=== PATIENT | male | born 1995 | race Two or more races ===

== ENCOUNTER 2018-10-04 01:42 | Inpatient (IN) | payer OTHER ==
[2018-10-04 02:12] LABS: PLATELET COUNT 192 10^3/uL (150-400)
[2018-10-04] MEDS ORDERED: OLANZapine DISINTEGR 10 MG TAB PO ONE (02:39)
--- NOTE | 2018-10-04 02:44 | EDPHY ---
H & P Stated Complaint: M1 Source: Patient - Personal History Current Tetanus Diphtheria and Acellular Pertussis (TDAP): Yes - Medical/Surgical History Hx Asthma: Yes Hx Chronic Respiratory Disease: No Hx Diabetes: No Hx Cardiac Disease: No Hx Renal Disease: No Hx Cirrhosis: No Hx Alcoholism: No Hx HIV/AIDS: No Hx Splenectomy or Spleen Trauma: No Other PMH: asthma - Social History Smoking Status: Never smoked Time Seen by Provider: 10/04/18 01:54 HPI/ROS: HPI The patient presents brought in by police on an M1 hold for suicidal ideation. Patient was making suicidal statements while at a constitution party with friends fawn. He does admit to having for glasses of wide at using marijuana. He supposedly wrote a suicide note about 1 week ago and has recently broken up with his girlfriend. He currently says he is not feeling suicidal, wants to leave the emergency department, thinks that his friends were projecting there a motions onto him. He denies any prior history of mental health problems. REVIEW OF SYSTEMS 10 systems were reviewed and negative with the exception of the elements mentioned in the history of present illness. PMHx: Asthma Soc Hx: College student, originally from [facility], alcohol and marijuana use FHx: Denies family history of depression PHYSICAL General Appearance: Alert, intoxicated Eyes: Pupils equal and round no pallor or injection ENT, Mouth: Mucous membranes moist Respiratory: There are no retractions, lungs are clear to auscultation Cardiovascular: Regular rate and rhythm Gastrointestinal: Abdomen is soft and non-tender, no masses, bowel sounds normal Neurological: A&O, moves all extremities Skin: Warm and dry, no rashes Musculoskeletal: Neck is supple non tender Extremities: symmetrical, full range of motion Psychiatric: Patient is oriented X 3, pressured speech, somewhat tangential (Riguzzi,Alexandria) Constitutional: Initial Vital Signs Temperature (C) 36.7 C 10/04/18 01:49 Heart Rate 91 10/04/18 01:49 Respiratory Rate 16 10/04/18 01:49 Blood Pressure 144/104 H 10/04/18 01:49 O2 Sat (%) 96 10/04/18 01:49 O2 Delivery Mode Room Air Allergies/Adverse Reactions: ibuprofen [From Motrin] Allergy (Verified 10/04/18 01:49) Home Medications: Medication Instructions Recorded Albuterol 10/04/18 Medical Decision Making Differential Diagnosis: This is a 23-year-old male with no significant mental health history who presents brought in by police on an M1 hold for suicidal ideation, making statements to friends at a constitution party tonight. Currently, he denies any suicidal ideation. He adamantly wants to be discharged so he can go on a date in the morning. He has pressured speech on my exam and is somewhat anxious. Labs are checked and the patient does have a slightly elevated blood alcohol level, positive for marijuana, otherwise labs are unremarkable. He agreed to a dose of medication to help him to sleep and I have ordered Zyprexa for him. 7:00 a.m.- Patient has been stable overnight. Case is signed out to the oncoming provider Dr. Garcia. Patient is medically clear and suitable for mental health evaluation. (Alexandria Armstrong) 11:50 a.m. the patient has been accepted to [address] [place] [address] Braga. Transfer paperwork completed. (Mike Garcia) - Data Points Laboratory Results: Laboratory Results 10/04/18 02:00 10/04/18 02:00 10/04/18 10/04/18 10/04/18 02:00 02:00 02:00 WBC 5.39 10^3/uL 10^3/uL (3.80-9.50) RBC 5.10 10^6/uL 10^6/uL (4.40-6.38) Hgb 14.1 g/dL g/dL (13.7-17.5) Hct 43.9 % % (40.0-51.0) MCV 86.1 fL fL (81.5-99.8) MCH 27.6 pg L pg (27.9-34.1) MCHC 32.1 g/dL L g/dL (32.4-36.7) RDW 12.2 % % (11.5-15.2) Plt Count 192 10^3/uL 10^3/uL (150-400) MPV 10.3 fL fL (8.7-11.7) Neut % (Auto) 46.6 % % (39.3-74.2) Lymph % (Auto) 36.7 % % (15.0-45.0) [place] % (Auto) 13.7 % H % (4.5-13.0) Eos % (Auto) 2.4 % % (0.6-7.6) Baso % (Auto) 0.4 % % (0.3-1.7) Nucleat RBC Rel Count 0.0 % % (0.0-0.2) Absolute Neuts (auto) 2.51 10^3/uL 10^3/uL (1.70-6.50) Absolute Lymphs (auto) 1.98 10^3/uL 10^3/uL (1.00-3.00) Absolute Monos (auto) 0.74 10^3/uL 10^3/uL (0.30-0.80) Absolute Eos (auto) 0.13 10^3/uL 10^3/uL (0.03-0.40) Absolute Basos (auto) 0.02 10^3/uL 10^3/uL (0.02-0.10) Absolute Nucleated RBC 0.00 10^3/uL 10^3/uL (0-0.01) Immature Gran % 0.2 % % (0.0-1.1) Immature Gran # 0.01 10^3/uL 10^3/uL (0.00-0.10) Sodium 142 mEq/L mEq/L (135-145) Potassium 4.1 mEq/L mEq/L (3.5-5.2) Chloride 108 mEq/L mEq/L (97-110) Carbon Dioxide 24 mEq/l mEq/l (22-31) Anion Gap 10 mEq/L mEq/L (6-14) BUN 9 mg/dL mg/dL (7-23) Creatinine 0.9 mg/dL mg/dL (0.7-1.3) Estimated GFR > 60 Glucose 99 mg/dL mg/dL (70-100) Calcium 8.8 mg/dL mg/dL (8.5-10.4) Urine Opiates Screen NEGATIVE (NEGATIVE) Urine Barbiturates NEGATIVE (NEGATIVE) Ur Phencyclidine Scrn NEGATIVE (NEGATIVE) Ur Amphetamine Screen NEGATIVE (NEGATIVE) U Benzodiazepines Scrn NEGATIVE (NEGATIVE) Urine Cocaine Screen NEGATIVE (NEGATIVE) U Marijuana (THC) Screen NON-NEGATIVE H (NEGATIVE) Ethyl Alcohol 178 mg/dL H mg/dL (0-10) Medications Given: Discontinued Medications Olanzapine (Zyprexa Zydis) 10 mg PO EDNOW ONE Stop: 10/04/18 02:40 Last Admin: 10/04/18 02:47 Dose: 10 mg Departure - Departure Disposition: [facility] IP Clinical Impression: Alcohol abuse, Acute psychosis Condition: Good Instructions: Alcohol Intoxication (ED) Additional Instructions: Please return to the emergency department if your worse in any way. Referrals: [facility],. [Clinic] - As per Instructions
--- NOTE | 2018-10-04 11:50 | GHP ---
[f rep st] HISTORY AND PHYSICAL DATE OF ADMISSION: 10/04/2018 CHIEF COMPLAINT: Suicidal ideation. HISTORY OF PRESENT ILLNESS: The patient is a 23-year-old male with no past medical psychiatric histo ry, who presented to the emergency department after his friends called 911 due to him making suicidal statements while at a green party. Upon my evaluation, the patient appears quite manic, with pressured sp eech. He reports he was at a green party with several friends last night where he drank several glasses of wine and smoked marijuana. He met a girl who came home with him and he was supposed to have brunch with her this morning. He is very disappointed to be missing his date. He denies any suicidality an d is frustrated that a friend was able to report he was suicidal. He feels betrayed. He wishes to g o home. However, he is on an M1 hold and is going to be admitted to the Behavioral Health Unit for f urther evaluation. He denies any family history of psychiatric illness. He is otherwise medically s table. He has a history of asthma, but he denies chest pain, shortness of breath, wheezing, or any u pper respiratory symptoms. He is a fit and active young man, has no complaints other than wishes to go home. PAST MEDICAL HISTORY: Asthma. MEDICATIONS: None. ALLERGIES: Ibuprofen. FAMILY HISTORY: Negative for psychiatric illness. SOCIAL HISTORY: The patient is a college student. He is from [facility]. He uses alcohol and dana veto regularly. He denies other illicit drug use. REVIEW OF SYSTEMS: A 10-point review of systems is performed and is negative except as per HPI. OBJECTIVE: VITAL SIGNS: Temperature is 36 degrees, blood pressure 126/84, heart rate 81, respirator y rate 16, he is 97% on room air. GENERAL: Patient is awake, alert, and oriented, in no acute distr ess. HEENT: Head atraumatic, normocephalic. Pupils equal, round, and reactive to light, extraocula r muscles intact. Oropharynx is clear. Mucous membranes are moist. NECK: Supple. No JVD. HEART: Regular rate and rhythm without murmur. LUNGS: Clear to auscultation bilaterally without wheezing . ABDOMEN: Soft, nondistended, nontender. Normoactive bowel sounds. EXTREMITIES: Without cyanosi s, clubbing, or edema. NEUROLOGIC: Grossly nonfocal. PSYCH: The patient has pressured speech, pawan ears manic. ASSESSMENT AND PLAN: The patient is a 23-year-old male with no prior psychiatric illness, who presen phyllis to the emergency department on an M1 hold due to suicidal statements. 1. Suicidal ideation. He is not currently taking any medications. He was evaluated by the Behavior tn Health team and he will be admitted involuntarily to the [address] [place] [address] Behavioral Health Unit for stabil ization of his mental health. He did receive a dose of Zyprexa in the ED early this morning, though he still appears a bit manic. 2. Asthma. There is no evidence of exacerbation. Continue p.r.n. albuterol as needed. DISPOSITION: Patient will be admitted to inpatient Behavioral Health. /[id number]/MODL
--- NOTE | 2018-10-04 12:24 | ASMTTLCEVL ---
[facility] Evaluation - Basic Information Evaluation Start Date and 10/04/2018 11:35 AM Time Hospital Status Answers: M1 Hold 72-hr M1 Hold Start Date 10/04/2018 12:37 PM and Time Patient statement Notes: Last night I was hanging out with a girl. Walked home. Everyone drank. They said this kids suicidal. Narrative Notes: Pt is a 23 y/o male, student who was brought in by the [facility] on a M1 hold, for being a danger to himself. Per M1, Ashley Sadler stated that Myles said he was going to kill himself multiple times throughout the night. Made statements [facility]. Ashley and other friends said Myles wrote a suicide note a week ago. Valentino recently broke-up with his girlfriend. Ashley stating Myles has been intoxicated for a few days straight. Pt told the ED physician that he is not feeling suicidal, wants to leave the emergency department, thinks that his friends were projecting their emotions onto him. Pt is a gerda at , studying archeology. He is originally from [facility]; his parents now reside in [place]. Pt began speaking as soon as clinician introduced herself. He spoke rapidly and with pressure relaying the statement noted above. He was able to be redirected. Throughout the interview this type of speech continued. He struggled to concentrate and was at times tangential, associating a word the clinician stated with the events that occurred last night. This transition occurred often as he perseverated on his belief that his friends issues were projected onto him. He later denied many of them were friends, more acquaintances. He was able to sit throughout the evaluation; security had described him as slightly restless. Affect was flat and eyes somewhat glassy. It was unclear to this clinician if his behaviors were symptoms of a hypomania or of anxiety. Pt denied that he ever told anyone last night that he was suicidal. Im happy he declared. He denied ever having suicidal thoughts. When asked about the suicide note, he explained that 2-3 weeks ago, while a friend of his was high on psychedelic mushrooms, he wrote a note and handed it to his friend; it said goodbye. I was just returning home. Pt was asked about the recent ending of his relationship with a girl. He noted that it was mutual and that she wanted to stay friends. He went on to say he had a date this morning with a girl he had already dated 2x prior. Pt denied any hx of depression or anxiety. He denied other symptoms associated with jean. He denies HI and hallucinations. Diagnosis History Notes: Pt denies any psychiatric hx. Prior suicide attempts Notes: Pt denies any past suicide attempts. Prior hospitalizations Notes: Pt denies any psychiatric hospitalizations. Treatment Responses Notes: Pt has not had psychiatric treatment. History of violence Notes: Pt denies any violence Therapist: None Psychiatrist: None Medications (name, dosage, route, freq uency) Notes: Albuterol Allergies/Reaction Notes: IIbupropen Sleep Notes: Pt reports he sleeps from approximately midnight until 7 the following morning; "I sleep great". Appetite Notes: Pt states that he is trying to gain weight. When he came to he weighed over 300lbs. He now weighs under 200 and wants to become a car body mechanic and weigh 270lbs. Medical/Surgical history Notes: Asthma Substance use history (frequency, intensity, his tory, duration) Notes: Pt stated he first drank with his father when he turned 20; "we had a glass of wine or a beer". Pt states that at he drinks approximately 2 times a week ; he will drink 2 glasses of wineon those occasions. He states that last night he drank 5 shots of tequila and 2 margueritas. Marijuana - 2-3x a week He denies use of any other substances. Family composition Notes: Parents live in [place]. He is the only child. Need for family Answers: Yes participation in patient's care Family psychiatric/substance abuse history Notes: Pt denies any family hx of mental illness or substance abuse. Developmental history Notes: Pt denies any concussions. He denies any trauma. Abuse concerns Answers: None Marital status/children Notes: Single, no children. Living situation Notes: Pt lives in his own apartment which is part of a larger house. Sexual history/orientation Notes: Heterosexual. Peer support/family strengths Notes: Pt cites his parents as supports as well as several friends "those people who lied to the police won't be my friends anymore". Education level/history Notes: Pt is a gerda at , studying [employer]. He states he does well and has approximately a 3.3 or 3.4. Work history Notes: Pt reports none. Notes: Pt reports none. Legal Notes: Pt denies. Religion/Spiritual Notes: Pt is Caodaism and when home attends anabaptist with his parents. Leisure Notes: Pt reports being very active. He enjoys basketball, hiking and running. He also likes to read and paint. Collateral Notes: Pt supplied his father's number as: [phone]. Clinician called; noone answere and there was no answering machine. Patient's strengths Answers: Athletic (Please select at least TWO strengths): Intelligent Supportive Family TLC Evaluation - Mental Status Exam Appearance: Answers: Unkempt Disheveled Eye Contact: Answers: Good/Direct Mood: Answers: Euthymic Affect: Answers: Constricted Flat Behavior: Answers: Appropriate Anxious Restless Talkative Speech: Answers: Excessive Flight of Ideas Hyperverbal Loose Associations Perseverating Pressured Thought Process: Answers: Disorganized Oriented Flight of Ideas Tangential Insight: Answers: Poor Judgement: Answers: Poor Manic Signs/Symptoms Answers: Pressured Speech Racing Thoughts Depression Answers: Difficulty Concentrating Signs/Symptoms: Hallucinations: Answers: None Pt reported to have Answers: No suicidal/self-injuring ideation/behavior? Pt reported to be making Answers: Yes suicidal/self-injuring threats? Pt reported to have Answers: No aggression/assault ideation/behavior? Pt reported to be making Answers: No aggression/assault threats? Pt exhibits inability to Answers: Yes care for self/grave disability? Ideation/behavior is Answers: No chronic? Patient has a specific Answers: No plan? Ideation has Answers: No delusional/hallucinatory content? History of Answers: No suicidal/self-injuring ideation, behavior, or threats? History of Answers: No aggressive/assaultive ideation, behavior, or threats? History of serious Answers: No physical harm to self/others while in treatment setting? TLC Evaluation - Suicide/Homicide Risk Suicide Risk Factors: Answers: Alcohol/Heavy Drug Use Flat Affect Impulsivity Problems with Partner Single Homicide/violence risk Answers: Heavy Alcohol Use factors: Current Suicidal Answers: No Ideation? Current Suicide Ideation Pt denies, friend states over the last week. Frequency: Current Suicidal Ideation Answers: Yes in the Past 48 Hours? Current Suicidal Ideation Answers: Yes in the Past Month? Current Suicidal Answers: Yes Ideation, Worst Ever? Suicide Internal Answers: Absence of Psychosis Protective Factors: Suicide External Answers: Social Support Protective Factors: Ranking of patient's Answers: Severe suicidal risk: Ranking of patient's Answers: Low homicidal risk: TLC Evaluation - Wrap-up BDI Total Score: 0 BDI Question #2 Score: 0 BDI Question #9 Score: 0 BSS Total Score: 0 AXIS I Diagnosis (include DSM-V and ICD-10 codes), must also be entered in [employer], which is the source of truth. Notes: Unspecified Depressive Disorder 311 (F32.9) Alcohol Use Disorder, mild 305.00 (F10.10) In consultation with [facility] ED physician, Dr Garcia and on-call psychiatrist, Dr Braga , both concurred that Pt does appear to meet 27-65 criteria requiring psychiatric hospitalization as Pt does appear to be an imminent risk of harm to self due to a mental illness condition. Pt was read the Patient Rights and Responsibilities Statement on 10/04/2018 at 9:45, original placed in chart and copy given to pt. Evaluation End Date and 10/04/2018 12:20 PM Time (HH:FROILAN): Date Signed: 10/04/2018 12:24 PM Electronically Signed By:Patricia Dunham
--- NOTE | 2018-10-04 12:25 | ASMTTCLDSP ---
TLC Discharge Disposition Disposition: Answers: Admit Discharge Concerns/Recommendations: Notes: In consultation with [facility] ED physician, Dr Garcia and on-call psychiatrist, Dr Braga , both concurred that Pt does appear to meet 27-65 criteria requiring psychiatric hospitalization as Pt does appear to be an imminent risk of harm to self due to a mental illness condition. Pt was read the Patient Rights and Responsibilities Statement on 10/04/2018 at 9:45, original placed in chart and copy given to pt. Was patient given the Answers: Yes Inpatient Behavioral Health Prohibited Belongings List while in the ED? For inpatient Dr Braga admission, the following psychiatrist agreed to accept patient for admission to Behavioral Health ([facility]): Type of Hold: Answers: M1/72-hour Hold Hold initiated by: Answers: Police Date Signed: 10/04/2018 12:25 PM Electronically Signed By:Patricia Dunham
[2018-10-04] MEDS ORDERED: ACETAMINOPHEN 325 MG TAB PO PRN (15:20)
[2018-10-04] MEDS ORDERED: NICOTINE POLACRILEX 2 MG GUM B PRN (15:20)
[2018-10-04] MEDS ORDERED: OLANZapine DISINTEGR 10 MG TAB PO PRN (15:20)
[2018-10-04] MEDS ORDERED: MAG HYDROX/AL HYDROX/SIMETH 30 ML UDCUP PO PRN (15:20)
[2018-10-04] MEDS ORDERED: LORazepam 0.5 MG TAB PO PRN (15:20)
[2018-10-04] MEDS ORDERED: MAGNESIUM HYDROXIDE 30 ML UDCUP PO PRN (15:20)
[2018-10-04] MEDS ORDERED: MELATONIN 3 MG TAB PO PRN (15:23)
[2018-10-04] MEDS: ALBUTEROL 60 PUFFS/8 GM MDI IH PRN (21:33)
--- NOTE | 2018-10-05 11:26 | ASMTBHMTP ---
Master Treatment Plan Master Treatment Plan Answers: Depressed Mood with for: Suicidal Ideation Date: 10/04/2018 Diagnosis on Admission: Unspecified Depressive Disorder 311 (F32.9) Expected length of stay: 3 Reason for admission: Notes: This residential mortgage underwriter attempted to meet with the patient on 10/04; the patient was asleep. The patient was reportedly having suicidal ideation. According to collateral data received by a peer, the patient had written a suicide note approximately one week ago and was making suicidal statements. The patient's peer was under the impression that the patient was grieving a previous intimate relationship. The patient reported that his admission was a misunderstanding. He reported that he was out of a date, Saturday evening, they ended the date early because of the weather. He jokingly said to a peer that he was "gonna go kill myself" before leaving the house. The peer, who was intoxicated, called the police. The patient reported that "back home" people speak this way all the time and it is normalized including coaches historically telling him "to go kill himself" when performing poorly. The patient reported that he understands the severity and that this is a "very serious matter." He has apologized to his peers and family. 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 He expressed pride and motivation. He emphasized his happiness repeatedly. Patient's goals for treatment: Notes: The patient would like to discharge. Patient's strengths: Notes: The patient reported "belief" in himself, persistence, and perseverance. Identify supports outside of hospital: Notes: The patient is supported by his family, peers, and [facility] faculty and staff. Discharge criteria: Notes: Suicidal ideation will resolve and the patient will have a plan to safely manage recurrent suicidal ideation. Initial disposition plan/considerations: Notes: The patient plans to return to his home and roommates, routine, and agreed to follow up with [facility] on campus. Master Treatment Plan Required Signatures Psychiatrist signature: Answers: Albert Braga MD: RN on-shift signature: Answers: RN: Patient signature: Answers: Patient: Date Signed: 10/05/2018 11:19 AM Electronically Signed By:Akosua Walters
--- NOTE | 2018-10-05 15:58 | ASMTBHFAM ---
Notes Note: Notes: The patient's parents contacted this automobile and property underwriter. They stated, "This is a misunderstanding. He is a normal person. He speaks normally. He is a normal deniz. He is going to become anxious being in a confined room." Per parents of patient, they call the patient every morning to wake him up for class. The parents explained that they are planning to fly to the [place] to support the patient. This automobile and property underwriter explained the 27-65 hold, psychiatric evaluation, and the discharge criteria. Date Signed: 10/05/2018 03:57 PM Electronically Signed By:Akosua Walters
--- NOTE | 2018-10-05 17:43 | BAPA ---
[f rep st] ADMISSION PSYCHIATRIC ASSESSMENT DATE OF SERVICE: 10/05/2018 CHIEF COMPLAINT: "Last night I was hanging out with a girl, walked home, everyone drank. They said this kid's suicidal." HISTORY OF PRESENT ILLNESS: The patient is a 23-year-old male [employer] student who was brought in by Marjan POTTER on an M1 hold for being a danger to himself. According to the M1, a friend, Ashley Sadler, stated that Myles said he was going to kill himself multiple times while he was at a libertarian, made statements about dying and going to heaven. Ashley and other friends said Myles wrote a suicide note a week ago. According to his friends, Myles recently broke up with his girlfriend. Ashley states that Myles has been intoxicated for a few days. When patient arrived in the emergency department, he denied experiencing thoughts of suicide. He told the ED physician that he was not suicidal and wanted to leave the emergency department. The patient says that his friends are "projecting their emotions" on to him. In the emergency department, patient had rapid speech, pressured thoughts throughout his interview with [facility]. He had difficulty concentrating, at times became tangential with loose associations. The patient was also perseverative that his friends misunderstood him, repeatedly trying to convince the [facility] checker dump grounds that he did not need to be in the hospital because he was not suicidal. He later denied that most of the people at the libertarian were his friends, that they were more like acquaintances. During the interview, he was restless and animated. The patient denied that he had ever expressed suicidal thoughts to anyone at the libertarian last night. He said "I am happy." When asked about the suicide note, 2-3 weeks ago patient said that he wrote a note and handed it to a friend that just said "esha." The patient stated that he did have a breakup with his girlfriend, but that the breakup was mutual. He said that he had already dated 2 women since his breakup. The patient denied that he was sad or depressed about the breakup. Stated that he had no reason to want to kill himself. On the inpatient Behavioral Health Services Unit, the patient continued to deny having any thoughts or plans to hurt himself or anyone else. He repeated statements to the hiv/aids care nurse and the MD that his friend "misunderstood" him. He repeated "this is all a mistake." The patient says that he is "a happy deniz." Patient also said that he is very normal, that he does not have any mood related problems. He denies feeling sad, helpless, hopeless, worthless , anxious, depressed, or having panic attacks. He denies experiencing auditory or visual hallucinations or other psychotic symptoms. He denies having periods of jean or hypomania in the past. The patient tried to convince MD and staff on the inpatient unit that he was "just joking." He said that in [place] his friends used to joke about suicide "all the time." He says that when he was in sports in [place] and he would perform badly that his coaches would tell him "why don't you go home and kill yourself." When MD expressed surprise at this statement, patient said, "it is true." The patient also states that he is very ashamed to be in the hospital. He says that his parents are very upset about him being placed involuntarily. The patient feels that he has brought "shame to my family" for being thought to have a mental illness and for being "locked up in a room." PAST PSYCHIATRIC HISTORY: The patient denies any prior history of depression, anxiety. He denies other symptoms associated with jean or psychosis. He denies ever experiencing hallucinations. He denies ever having suicidal thoughts or homicidal thoughts. He says he has never been in a psychiatric facility, never received mental health treatment, has never been on medications and denies any priors suicide attempts. ALLERGIES: The patient has an allergy to ibuprofen. CURRENT MEDICATIONS: The patient is not currently prescribed for taking any psych medications. He does take albuterol inhaler 1-2 puffs q.4 hours p.r.n. He says that his asthma is usually worse in the wintertime. PAST MEDICAL HISTORY: Patient's only significant medical problem is asthma. He denies any other chronic medical conditions. He has no prior surgical history. SOCIAL HISTORY: The patient was born in [facility]. His parents currently live in [facility]. He says that his parents are his support as well as several friends. He said that "those people who lie to the police won't be my friends anymore." The patient is a gerda at studying architecture. He says that he has a 3.3 or 3.4 GPA. He lives in his own apartment. He is single. No children. He says that he is Spiritism and when he is at home with his parents he attends [employer] , but does not have any anglican observances in [place]. The patient did have a breakup with his girlfriend, but he says that the break was "mutual." He says that he has "moved on" and is dating. FAMILY HISTORY: Patient denies any family history of mental illness or substance abuse. SUBSTANCE USE: The patient states that he first drank when he turned 20 years old. He says that since he has come to , he drinks approximately twice a week. He will drink 2 glasses of wine. He states that the night that he came to the emergency department he drank 5 shots of Tequila and 2 Margaritas. He says that he uses marijuana 2-3 times a week. He denies use of any other substances. TRAUMA HISTORY: Patient denies any history of physical, sexual, or emotional abuse. LEGAL HISTORY: Patient denies any legal problems. MENTAL STATUS EXAMINATION: This is an overweight, otherwise appropriately groomed, well-developed man sitting at a table by the window. He is alert and oriented x4. His affect is euthymic. His demeanor is appropriate. He makes good eye contact. Speech rate and volume are normal. Intellectual function appears to be average based upon his vocabulary, fund of knowledge and educational history. He denies feeling sad, helpless, hopeless, worthless, and anxious. He denies any symptoms of psychosis, including denying auditory and visual hallucinations, and paranoid delusions. There are no signs or symptoms of jean. He does not have racing thoughts, pressured speech, grandiose delusions or elevated or elated mood. He denies any thoughts or plans to hurt himself or anyone else. His thought process is linear and goal directed. His insight and judgment are both poor as evidenced by his recent use of mood altering substances and recent statements to friends that he wanted to kill himself, which he is now denying. The patient admits that he was intoxicated enough at the libertarian to possibly not remember what he said or did. IMPRESSION: 1. Substance-induced mood disorder. 2. Rule out adjustment disorder. 3. Alcohol use disorder, unknown severity. 4. Cannabis use disorder, unknown severity. 5. Lack of social support, recent breakup with girlfriend, some strained relationship with peers. PLAN: 1. Admit patient to the inpatient Behavioral Health Services Unit on 3 on an M1 hold. 2. Monitor closely for safety. The patient is currently not exhibiting any signs of unsafe behavior. He is acting appropriately. He is also denying any thoughts, plans, or intents to hurt himself or anyone else. 3. We will continue to monitor and observe the patient. He has not exhibited any symptoms of restlessness, agitation, pressured speech, or racing thoughts that he exhibited in the emergency department. This may be due to the fact that he is no longer intoxicated and his symptoms may have resolved once his drugs and alcohol cleared his system. He is not currently endorsing any symptoms of mental illness including denying depression, anxiety, panic, jean, hypomania, and psychosis. 4. The patient states that he does not have a mental health problem. He is not sad, depressed, or suicidal. He denies ever having mental health issues. He denies ever having mood problems. Denies that he ever had any thoughts about wanting to hurt himself or anyone else. He does not want to take any psychiatric medications. He is not willing to see an outpatient therapist. He says that he will take a referral to [facility] and talk to them, but does not see the need for ongoing treatment. The MD tried to impress upon the patient that even if he is feeling "normal" as he said today, it may be the case that when he is using alcohol or other mood-altering substances that he feels differently and may make statements or act in ways that concern his friends and that may be a problem. MD encouraged the patient to have further discussions with an outpatient therapist to determine whether or not he needs any kind of mental health services. 5. Estimated length of stay is 1-2 days. The patient's parents are flying in from [facility]. They will arrive on Saturday10/07/2018. The patient's hold expires on the at 0037. /[id number]/MODL MTDD
--- NOTE | 2018-10-06 11:46 | SOAPPROG ---
SOAP Progress Note Assessment/Plan: Assessment: Adjustment Disorder with mixed disturbance of emotions and conduct. Improvement noted. (see subjective/objective note). Patient could benefit from continued inpatient hospitalization for crisis stabilization, safety, and medication evaluation. Likely discharge tomorrow. Plan: 1. Psychotropic medications: No medications at this time. 2. Review with patient informed consent and recommendations for psychotropic medication treatment listed below 3. Labs: no additional labs at this time 4. Therapy: continue milieu and group therapy 5. Further investigation including gathering information from patients relatives and review of past case records to inform treatment plan. 6. Safety/Wellness plan and follow-up outpatient appointments to be established prior to discharge. Next steps are for patient to meet with physician primary care sports medicine to plan a safe discharge plan and establish outpatient services for ongoing treatment. 7. Confer with inpatient treatment team regarding treatment plan. 8. Psychosocial stressors addressed through keycase assembler 9. Legal status: M1 10. Consider discharge when patient is in stable condition, safe, and has a safe discharge plan. PSYCHOTROPIC MEDICATION TREATMENT INFORMED CONSENT and RECOMMENDATIONS: Review nature of condition, diagnosis, and prognosis. Review nature and purpose of psychotropic medication treatment. Review type of psychotropic medications being ordered. Review risk and benefits of psychotropic medication treatment. Review probable length of time patient will need to take medications. Review risk and benefits of not undergoing psychotropic medication treatment. Review alternative treatments to psychotropic medications. Review psychotropic medications contraindications, drug-drug interactions, side effects, and importance of reporting any side effects to a psychiatric provider or nurse during inpatient hospitalization, and upon discharge to patients psychiatric outpatient provider, primary care provider, or other health care consultant. Review importance of asking a nurse, psychiatric provider, or primary care provider any questions or problems concerning the psychotropic medications. Verify patient understands the information that has been provided, and understands, accepts, and agrees to psychotropic medications. Review patients safety plan and importance of patient to report to staff while hospitalized if patient is ever a danger to self/others, or unable to care for self, and upon discharge, the importance for patient to contact [facility] or [facility], or go to the nearest emergency room, if patient is ever a danger to self/others, or unable to care for self. Recommend that upon discharge patient establish medication management treatment with a psychiatric provider, establishes routine therapy appointments, and follow-up with primary care provider. Verify patient understands and agrees to these recommendations. 10/06/18 11:45 Subjective: Following up with patient for evaluation of depression, anxiety, and safety. Patient reports, "Feeling fine. Misunderstanding why I am here. I was not actually suicidal; a lot of great things to live for, I do not want to kill myself. I should not have made those statements." Patient expresses the following psychiatric symptoms none. Patient denies SI. Patient agrees to contact friends that are aware of the circumstances leading to this hospitalization, and sign CHET for this CUSTOMER ADVISOR SPECIALIST to speak to them regarding these circumstances and assess patients readiness/safety for discharge. Patient reports his parents plan to visit him, and are to arrive in [place] tomorrow. Patient agrees to voluntary hospitalization. Objective: Vital Signs Temp Pulse Resp BP Pulse Ox 36.9 C 60 15 133/67 H 96 10/06/18 06:00 10/06/18 06:00 10/06/18 06:00 10/06/18 06:00 10/06/18 06:00 NURSING REPORT: Consulted with nursing for update on patients progress in treatment. Nurses report patient is engaged in treatment, is attending groups, slept 8 hours; expresses the following psychiatric symptoms: mild anxiety, exhibits the following psychiatric symptoms: anxious; is eating all meals, is agreeable to medications and taking as prescribed with no report of side effects , with no s/s of EPS/akathisia, and denies SI/HI, denies A/V hallucinations, and denies delusions. MSE: The patient is a well-nourished male looking stated chronological age. Attire is appropriate and dress is casual. Grooming status is appropriate. Ambulation is independent. Gait is normal and coordinated. Posture is normal and relaxed. Eye contact is appropriate. Motor activity is appropriate with purposeful, organized, coordinated movements; with no involuntary movements. Attitude is cooperative. Patient appears attentive and does relate well to this interviewer. Language production is spontaneous. R/R/V normal. Articulation is clear. Patient reports mood as okay with congruent affect. Patients thought process is linear and logical with no signs of thought disorder. Patient denies suicidal thoughts, denies homicidal ideation. Patient denies auditory, visual hallucinations. Patient denies delusions. Patient does not appear to be attending to internal stimuli. Patients attention and concentration are fair. Patient is oriented to person, place, time. Patients insight and judgment are poor. Patient has no apparent dysfunction in recent or remote memory noted, and no evidence of gross cognitive dysfunction noted at any point during the interview. - Time Spent With Patient Time Spent With Patient: 30 minutes, met with patient individually and with patient and treatment team. - Pending Discharge Pending Discharge Within 24 Hours: Yes Pending Discharge Within 48 Hours: No Pending Discharge Date: 10/07/18 Pending Discharge Time: 11:00 ICD10 Worksheet Patient Problems: Problems Problem Status Onset Adjustment disorder with mixed disturbance of emotions and conduct Acute
--- NOTE | 2018-10-06 13:01 | ASMTBHFAM ---
Notes Note: Notes: This clinical writer spoke with the patient's parents who are currently traveling to be with the patient and provide support. The parents made multiple requests that the patient be discharged prior to the expiration of his 27-65 M1 hold. They insisted that the statements written on the hold by police are "untrue." Date Signed: 10/06/2018 12:59 PM Electronically Signed By:Akosua Walters
--- NOTE | 2018-10-06 13:45 | ASMTBHDC ---
Notes Note: Notes: CC confirmed follow up apts: Follow Up: Sonny BRONSON [place]: Contact [phone] (04/03 support) Locations: [facility] Main Office Saturday - Saturday 8:30 AM - 4:30 PM Walk-in Hours: M - F: 10 AM - 4 PM [id number] CM appt: SaturdayOctober 14 (10/14/18) at 11am. Date Signed: 10/06/2018 01:44 PM Electronically Signed By:Eusebio Washburn
[2018-10-07 06:59] VITALS: BP 129/71
[2018-10-07] MEDS: ALBUTEROL 60 PUFFS/8 GM MDI IH PRN (09:07)
--- NOTE | 2018-10-07 09:51 | BDS ---
[f rep st] BEHAVIORAL HEALTH DISCHARGE SUMMARY REASON FOR ADMISSION: From the ED note dated 10/04/2018, patient was brought to the emergency department by police on an M1 hold for suicidal ideation. Patient was reportedly making suicidal statements while at a constitution party with friends. Patient supposedly wrote a suicide note about 1 week ago and also reportedly recently broke up with his girlfriend. At the time of presenting to the emergency department, patient reported he was not currently feeling suicidal and wanted to leave. Patient was admitted involuntarily and on an M1 hold due to being a danger to himself. Patient was admitted for safety, crisis stabilization, and medication evaluation. ADMITTING DIAGNOSIS: Adjustment disorder with mixed disturbance of emotions and conduct. ADMISSION PHYSICAL EXAM: Patient was seen for history and physical on 10/04 for medical clearance for inpatient psychiatric hospitalization and treatment. Patient was medically cleared for inpatient psychiatric hospitalization and treatment. For further details, please refer to history and physical document dated 10/07/2018. ADMISSION LABS: 1. CBC within normal limits except MCH was low at 27.6, MCHC was low at 32.1. Monocytes were elevated at 13.7. 2. BMP within normal limits. 3. Hemoglobin A1c within normal limits at 4.4. 4. Lipid panel within normal limits except cholesterol was low at 119. Non- HDL cholesterol was low at 76. 5. Toxicology screen was non-negative for THC, negative for other substances screened. Ethyl alcohol level was 178. MAJOR PROCEDURES OR TESTS: None. HOSPITAL COURSE: The most prominent symptoms and behaviors while the patient was here were reports of moderate anxiety. Treatment modalities utilized were milieu and group therapy. Patient has improved considerably with no signs of psychiatric symptoms and no psychiatric symptoms expressed. Patient reports he has improved since admission, states to be in stable condition, feels safe to discharge, and he contracts for safety. Patients response to treatment was good. There were no adverse or unexpected results of treatment. The patient was safe throughout stay, active in treatment, engaged in groups, and was appropriate with staff. Patient met with treatment team prior to discharge to assess readiness to discharge and review discharge plan. The treatment team consensus is the patient in stable condition, has a safe discharge plan, and is ready to discharge today. CONDITION AT DISCHARGE: Patient is in stable condition and is no longer a danger to self or others, and is not gravely disabled due to mental illness. Patient is no longer in need of inpatient level of care, and can be safely and effectively treated within the community. The patients level of risk at time of discharge is low. MSE: The patient is casually dressed and with good hygiene , and looks stated age. Patient is sitting, posture is upright, and position is relaxed. Patient appears awake, alert, and responds appropriately and reasonably during interview. Patient is engaged, relates well to interviewer, and emotional facial expression is appropriate to situation and changes appropriately with topic. Patient is cooperative, makes comfortable eye contact , and movements are voluntary, deliberate, coordinated, and smooth and even with no inappropriate movements. Patient makes laryngeal sounds effortlessly and shares conversation appropriately; pace of conversation is appropriate, and stream of talking is fluent; articulation is clear and understandable; word choice is effortless and appropriate for education level; completes sentences, occasionally pausing to think; rate and volume are appropriate for interview and setting. Patient reports mood as euthymic. Patients affect is stable with full variable range, congruent with mood, and appropriate to speech and circumstances. Patient has linear and logical thinking, with no loose associations, tangential thought, thought blocking, concrete thinking, or any other signs of formal thought disorder. Patient denies suicidal and homicidal ideation, and denies hallucinations and delusions. Patient appears to be a reliable historian with sound judgement and good insight into current condition. Patient has no apparent dysfunction in recent or remote memory noted , and no evidence of gross cognitive dysfunction noted at any point during the interview. DISCHARGE DIAGNOSES: Adjustment disorder with mixed disturbance of emotions and conduct. CURRENT MEDICATIONS: Albuterol 1-2 puffs IH q.4 hours p.r.n. This is the patient's outpatient home medication. Patient requests no prescriptions at time of discharge. Medications are reviewed with the patient at time of discharge to ensure accuracy and patient understanding. DISPOSITION: Patient left hospital independently and voluntarily with his friend and plans to return to his home in [place], [place], and return to classes at . FOLLOWUP: athletic coordinator reports the appropriate outpatient follow-up services have been established and outpatient appointments have been scheduled. The patient received written instructions with times and dates of outpatient follow-up appointments. The following follow-up recommendations were provided to the patient at discharge: Continue psychotropic medications as prescribed and attend appointments as scheduled. Report any side effects to a psychiatric outpatient provider, a primary care provider, or other health customer care representative. Address any questions or problems concerning the psychotropic medications with a psychiatric outpatient provider, a primary care provider, or other health customer care representative. Contact [place] [facility] or 911, or go to the nearest emergency room, if you are ever a danger to yourself/others, or unable to care for yourself. As soon as possible, establish a routine medication management treatment with a psychiatric provider, establish routine therapy appointments, and follow-up with a primary care provider. LEGAL COURSE: Patient was admitted on an M1 hold for involuntary inpatient psychiatric hospitalization. Patient discharged today independently and voluntarily. ATTITUDE AT TIME OF DISCHARGE: The patients attitude was positive at time of discharge, and patient reports looking forward to discharging today. The patient reports he feels safe to discharge, is no longer a danger to himself or others, is in stable condition, and contracts for safety. Patient states he will continue medications as prescribed, and establish medication management treatment with an outpatient provider after discharge. Patient reports he understands the information that has been provided to him, and he understands, accepts, and agrees to psychotropic medications. Patient describes internal protective factors as the coping skills he has learned while hospitalized here, and he plans to continue to practice these coping skills after discharge. LABS AND RADIOLOGY STUDIES: There were no pending labs or studies at time of discharge. ADVANCE DIRECTIVES: There were no advance directives on file, and patient was full code during this hospitalization. The following psychotropic medication treatment informed consent and recommendations were provided to the patient at time of discharge. Patient reports he understands, accepts, and agrees to the information that has been provided. PSYCHOTROPIC MEDICATION TREATMENT INFORMED CONSENT and RECOMMENDATIONS: Review nature of condition, diagnosis, and prognosis. Review nature and purpose of psychotropic medication treatment. Review type of psychotropic medications being prescribed. Review risk and benefits of psychotropic medication treatment. Review probable length of time will need to take medications. Review risk and benefits of not undergoing psychotropic medication treatment. Review alternative treatments to psychotropic medications. Review psychotropic medications contraindications, side effects, and importance of reporting any side effects to a psychiatric provider, primary care provider, or other health customer care representative. Review importance of asking a psychiatric provider or primary care provider any questions or problems concerning the psychotropic medications. Review safety plan and the importance to contact [facility] or 911 , or go to the nearest emergency room, if ever a danger to yourself/others, or unable to care for yourself. Recommend upon discharge to establish routine medication management treatment with a psychiatric provider, establish routine therapy appointments, and follow-up with a primary care provider. Verify patient understands, accepts, and agrees to the information that has been provided. /[id number]
== END 2018-10-07 10:59 | disposition home or self-care (01) | DRG 882 ==
LOC: EDSEX 01:42 → BBEH 13:45
PROVIDERS: ADMIT Psychiatry & Neurology Psychiatry; ATTEND Psychiatry & Neurology Psychiatry
DX: F43.25 Adjustment disorder with mixed disturbance of emotions and conduct (principal); F10.920 Alcohol use, unspecified with intoxication, uncomplicated; F12.929 Cannabis use, unspecified with intoxication, unspecified; J45.909 Unspecified asthma, uncomplicated
CPT/HCPCS: 80305; G0480